=== PATIENT | male | born 1990 | race Two or more races ===

== ENCOUNTER → 2017-07-06 | Day surgery (SDC) | payer OTHER | END | disposition home or self-care (01) | LOC: FIMAGING 07:33 | PROVIDERS: ATTEND Obstetrics & Gynecology | DX: I86.1 Scrotal varices (principal); Z53.9 Procedure and treatment not carried out, unspecified reason ==

== ENCOUNTER 2017-07-20 08:59 | Day surgery (SDC) | payer OTHER ==
[2017-07-20] MEDS ORDERED: GLUCAGON HCL 1 MG VIAL IVP PRN (09:13)
[2017-07-20] MEDS ORDERED: PROTAMINE SULFATE 50 MG/5 ML VIAL IVP PRN (09:13)
[2017-07-20] MEDS ORDERED: fentaNYL 100 MCG/2 ML INJ IVP PRN (09:13)
[2017-07-20] MEDS ORDERED: MEPERIDINE 25 MG/ML SYR IVP PRN (09:13)
[2017-07-20] MEDS ORDERED: NALOXONE HCL 0.4 MG/ML INJ IVP PRN (09:13)
[2017-07-20] MEDS ORDERED: ALTEPLASE 2 MG VIAL IVP PRN (09:13)
[2017-07-20] MEDS ORDERED: HEPARIN 10,000 UNIT/10 ML MDV IVP PRN (09:13)
[2017-07-20] MEDS ORDERED: FLUMAZENIL 0.5 MG/5 ML MDV IVP PRN (09:13)
[2017-07-20] MEDS ORDERED: MIDAZOLAM 2 MG/2 ML VIAL IVP PRN (09:13)
[2017-07-20] MEDS ORDERED: NS 1,000 ML IV SCH (09:15)
[2017-07-20 09:59] VITALS: TEMP 98.2
[2017-07-20 10:02] LABS: INR 1.02 (0.83-1.16); PROTIME(PATIENT) 13.6 SEC (12.0-15.0)
--- NOTE | 2017-07-20 10:57 | PDGENHP ---
History & Physical Chief Complaint: Painful left varicocele History of Present Illness: 3 month duration. Two ultrasound examinations ([place], [place]): varicocele. Pertinent Past, Social, Family History: Allergies: none. Operations: testicular torsion on right in 2007, orchiectomy needed. Relevant Physical Exam: Normal scrotum and penis. Patient has right scrotal artificial testis implant. Cardiorespiratory Assessment: Lungs: clear. Heart: RRR, no murmur, 76 bpm.
--- NOTE | 2017-07-20 11:07 | PDPROPOC ---
Sedation Plan of Care Sedation Plan of Care: vital signs stable, mental status noted, patient educated of risks, benefits, alternatives, patient can tolerate sedation ASA Classification: ASA 1 Planned drugs: fentanyl, midazolam Mallampati Score: Class 1 Mallampati Reference Image: Patient passed 3-3-2 rule?: Yes
[2017-07-20] MEDS ORDERED: IOPAMIDOL (ISOVUE-300) 100 ML BTL ONE ×3 (11:49→13:18)
[2017-07-20] MEDS ORDERED: SODIUM TETRADECYL SULFATE 3% 2 ML VIAL IV ONE (12:15)
[2017-07-20] MEDS ORDERED: MIDAZOLAM 2 MG/2 ML VIAL ONE (12:26)
[2017-07-20] MEDS ORDERED: fentaNYL 100 MCG/2 ML INJ ONE (12:26)
--- NOTE | 2017-07-20 14:00 | PDRADPN ---
Radiology Procedure Note Date of Procedure: 07/20/17 Radiologist: Chuck Chi Anesthesia: IV Sedation Pre-op Diagnosis: Left varicocele Post-op Diagnosis: Same Indication: Painful left varicocele. Previous right orchiectomy (torsion). Procedure: Embolization of left testicular vein. 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 Inf/Abcess present in the surg proc area at time of surgery?: No EBL: Minimal Complications: Pulmonary embolization of final coil. OUTCOME OF COMPLICATION: Successful transcatheter retreival of embolized coil.
[2017-07-20] MEDS ORDERED: OXYCODONE/APAP 5/325 TAB PO PRN (14:01)
[2017-07-20] MEDS ORDERED: ONDANSETRON 4 MG/2 ML VIAL IVP PRN (14:01)
[2017-07-20] MEDS ORDERED: ONDANSETRON 4 MG/2 ML VIAL ONE (14:02)
[2017-07-20] MEDS ORDERED: LIDOCAINE 1% 300 MG/30 ML SDV ONE (14:09)
[2017-07-20 14:20] VITALS: BP 127/64; PULSE 63; RESP 17; O2SAT 92
== END 2017-07-20 17:05 | disposition home or self-care (01) ==
LOC: FIMAGING 08:59
PROVIDERS: ATTEND Specialist
PROC: 06H Lower Veins, Insertion (ICD-10-PCS; principal; 2017-07-20 14:01)
PROC: 03CY3ZZ Extirpation of Matter from Upper Artery, Percutaneous Approach (ICD-10-PCS; principal; 2017-07-20 14:01)
PROC: 06LY3ZZ Occlusion of Lower Vein, Percutaneous Approach (ICD-10-PCS; principal; 2017-07-20 14:01)
DX: I86.1 Scrotal varices (principal); Z96.0 Presence of urogenital implants
CPT/HCPCS: 36011; 37197; 37241; 75736; 99152; 99153; C1769; C1773; C1892; C1894; J1644; J2250; J2310; J2405; J3010; Q9967

== ENCOUNTER → 2017-08-15 | Outpatient (CLI) | payer OTHER | LOC: FIMAGING 16:16 | PROVIDERS: ATTEND Obstetrics & Gynecology | DX: Z09 Encounter for follow-up examination after completed treatment for conditions other than malignant neoplasm (principal) ==